=== PATIENT | female | born 1935 | race Caucasian/White ===

== ENCOUNTER → 2017-03-11 | Outpatient (CLI) | payer MEDICARE, BC ==
[~2017-03-11] MED LIST: ASPIRIN 32325 MG/TAB PO; ASPIRIN E.C. 8181 MG PO; BRILINTA90 MG PO; FISH OIL 1000MG1 CAP PO; LIPITOR 40MG TA40 MG PO; MULTI VITAMINS1 TAB PO; NAPROSYN 2250 MG/TAB PO; NITROSTAT0.4 MG/TAB SL; NORVASC 5MG5 MG/TAB PO; TOPROL XL 25MG25 MG PO; TYLENOL 325MG325 MG PO; ULTRAM 50MG TAB50 MG PO; VITAMIN D32000 IU; VITAMINC500CH
== END ==
LOC: COL.RAD 10:24
DX: M25.552 Pain in left hip (principal)
CPT/HCPCS: J3301; Q9967

== ENCOUNTER 2017-07-10 18:00 | Observation (INO) | payer MEDICARE, BC ==
[~2017-07-10] VITALS: Ht 167.6 cm; Wt 49.1 kg
[2017-07-10] MEDS ORDERED: ULTRAM 50MG TAB50 MG PO (18:12)
[2017-07-10] MEDS ORDERED: MULTI VITAMINS1 TAB PO (18:12)
[2017-07-10] MEDS ORDERED: TYLENOL 325MG325 MG PO (18:13)
[2017-07-10] MEDS ORDERED: VITAMINC500CH (18:13)
[2017-07-10] MEDS ORDERED: TOPROL XL 25MG25 MG PO (18:13)
[2017-07-10] MEDS ORDERED: NAPROSYN 2250 MG/TAB PO (18:15)
[2017-07-10] MEDS ORDERED: VITAMIN D32000 IU (18:15)
[2017-07-10] MEDS ORDERED: ASPIRIN 32325 MG/TAB PO (18:15)
[2017-07-10] MEDS ORDERED: FISH OIL 1000MG1 CAP PO (18:16)
[2017-07-10 18:34] LABS: BASO # 0.1 (0.0-0.2); BASO % 0.9 % (0.0-2.0); EOS # 0.1 (0.0-0.7); EOS % 1.4 % (0-4.0); GRAN # 3.6 (1.4-6.5); HEMATOCRIT 37.6 % (37.0-47.0); HEMOGLOBIN 12.2 g/dl (12.5-16.0); LYMPH # 2.1 (1.2-3.4); LYMPH % 32.1 % (20.0-51.0); MEAN CELL VOLUME 97 fl (80.0-100.0); MEAN CORPUSCULAR HEMOGLOBIN 31 pg (27.0-31.0); MEAN CORPUSCULAR HGB CONC 32 g/dl (33.0-37.0); MEAN PLATELET VOLUME 9.9 fl (7.4-10.4); MONO # 0.6 (0.1-0.6); MONO % 9.3 % (1.7-9.3); PLATELET COUNT 234 K/mm3 (130-400); RED BLOOD COUNT 3.88 M/mm3 (4.10-5.30); REDCELL DISTRIBUTION WIDTH-CV 12.6 % (11.5-14.5); WHITE BLOOD COUNT 6.5 K/mm3 (4.8-10.8)
[2017-07-10 19:02] LABS: ADJUSTED CALCIUM 9.2 mg/dL (8.4-10.2); ALANINE AMINOTRANSFERASE 43 U/L (9-52); ALBUMIN 4.2 gm/dL (3.5-5.0); ALKALINE PHOSPHATASE 82 U/L (50-136); ANION GAP 10 mmol/L (7-16); BILIRUBIN,TOTAL 0.9 mg/dL (0.0-1.0); BLOOD UREA NITROGEN 24 mg/dL (7-17); CALCIUM 9.4 mg/dL (8.4-10.2); CARBON DIOXIDE 27 mmol/L (22-30); CHLORIDE 101 mmol/L (98-107); CREATININE, serum 0.79 mg/dL (0.52-1.25); GLUCOSE 101 mg/dL (74-106); LIPASE 42 U/L (23-300); POTASSIUM 4.3 mmol/L (3.4-5.0); SODIUM 138 mmol/L (137-145); TOTAL PROTEIN 7.1 gm/dL (6.4-8.2)
[2017-07-10 19:05] LABS: PH 6 (5-8); SQUAMOUS EPITHELIAL None Seen /hpf; URINE APPEARANCE Clear; URINE BACTERIA None Seen /hpf; URINE BILIRUBIN Negative (NEGATIVE); URINE BLOOD Negative (NEGATIVE); URINE COLOR Yellow; URINE GLUCOSE Negative (NEGATIVE); URINE KETONE Trace (NEGATIVE); URINE UROBILINOGEN Negative (NEGATIVE); URINE WBC 0-2 /hpf
[2017-07-10 19:14] LABS: B-TYPE NATRIURETIC PEPTIDE 667 pg/mL (0-450)
[2017-07-10 19:19] LABS: TROPONIN-I < 0.012 ng/mL (0.000-0.034)
[2017-07-10 21:17] LABS: PROTHROMBIN TIME 11.5 SECONDS (9.7-12.8)
[2017-07-10 21:20] LABS: PARTIAL THROMBOPLASTIN TIME 31.4 SECONDS (26.0-37.0)
[2017-07-10 21:45] LABS: MAGNESIUM 2.2 mg/dL (1.6-2.3)
[2017-07-10 22:03] VITALS: BP 195/78; PULSE 71; TEMP 98.4
[2017-07-11] VITALS (13 sets, daily range): BP systolic 142–190; BP diastolic 63–96; PULSE 61–107; TEMP 97.6–100
[2017-07-11 07:27] LABS: BASO # 0.1 (0.0-0.2); BASO % 1.3 % (0.0-2.0); EOS # 0.1 (0.0-0.7); EOS % 1.8 % (0-4.0); GRAN # 2.8 (1.4-6.5); GRAN % 45.3 % (42.2-75.2); HEMATOCRIT 38.7 % (37.0-47.0); HEMOGLOBIN 12.8 g/dl (12.5-16.0); LYMPH # 2.5 (1.2-3.4); LYMPH % 41.1 % (20.0-51.0); MEAN CELL VOLUME 95 fl (80.0-100.0); MEAN CORPUSCULAR HEMOGLOBIN 31 pg (27.0-31.0); MEAN CORPUSCULAR HGB CONC 33 g/dl (33.0-37.0); MEAN PLATELET VOLUME 10.4 fl (7.4-10.4); MONO # 0.6 (0.1-0.6); MONO % 10.3 % (1.7-9.3); PLATELET COUNT 245 K/mm3 (130-400); RED BLOOD COUNT 4.08 M/mm3 (4.10-5.30); REDCELL DISTRIBUTION WIDTH-CV 12.6 % (11.5-14.5); WHITE BLOOD COUNT 6.1 K/mm3 (4.8-10.8)
[2017-07-11 07:39] LABS: ADJUSTED CALCIUM 9.5 mg/dL (8.4-10.2); ALBUMIN 4.1 gm/dL (3.5-5.0); BILIRUBIN,TOTAL 1.3 mg/dL (0.0-1.0); CALCIUM 9.6 mg/dL (8.4-10.2); CREATININE, serum 0.57 mg/dL (0.52-1.25); POTASSIUM 3.7 mmol/L (3.4-5.0)
[2017-07-12] VITALS (633 sets, daily range): BP systolic 111–180; BP diastolic 56–95; PULSE 62–77; TEMP 97.2–98.6; O2SAT 87–100
[2017-07-12 04:42] LABS: HEMATOCRIT 39.6 % (37.0-47.0); MEAN CELL VOLUME 96 fl (80.0-100.0); MEAN CORPUSCULAR HEMOGLOBIN 31 pg (27.0-31.0); MEAN CORPUSCULAR HGB CONC 33 g/dl (33.0-37.0); MEAN PLATELET VOLUME 9.9 fl (7.4-10.4); PLATELET COUNT 230 K/mm3 (130-400); RED BLOOD COUNT 4.14 M/mm3 (4.10-5.30); REDCELL DISTRIBUTION WIDTH-CV 12.6 % (11.5-14.5); WHITE BLOOD COUNT 6.8 K/mm3 (4.8-10.8)
[2017-07-12 04:48] LABS: INR 1.1 (0.8-3.0); PROTHROMBIN TIME 11.7 SECONDS (9.7-12.8)
[2017-07-12 04:51] LABS: CALCIUM 9.6 mg/dL (8.4-10.2); CREATININE, serum 0.67 mg/dL (0.52-1.25); PARTIAL THROMBOPLASTIN TIME 31.3 SECONDS (26.0-37.0); POTASSIUM 3.9 mmol/L (3.4-5.0)
[2017-07-13] VITALS (431 sets, daily range): BP systolic 128–154; BP diastolic 70–73; PULSE 58–62; TEMP 97.8; O2SAT 88–100
[2017-07-13 04:29] LABS: BASO # 0.1 (0.0-0.2); BASO % 0.7 % (0.0-2.0); EOS # 0.1 (0.0-0.7); EOS % 1.8 % (0-4.0); GRAN % 66.6 % (42.2-75.2); HEMATOCRIT 38.2 % (37.0-47.0); HEMOGLOBIN 12.6 g/dl (12.5-16.0); LYMPH # 1.7 (1.2-3.4); LYMPH % 22.5 % (20.0-51.0); MEAN CELL VOLUME 97 fl (80.0-100.0); MEAN CORPUSCULAR HEMOGLOBIN 32 pg (27.0-31.0); MEAN CORPUSCULAR HGB CONC 33 g/dl (33.0-37.0); MONO # 0.6 (0.1-0.6); MONO % 8.3 % (1.7-9.3); PLATELET COUNT 218 K/mm3 (130-400); RED BLOOD COUNT 3.95 M/mm3 (4.10-5.30); REDCELL DISTRIBUTION WIDTH-CV 12.7 % (11.5-14.5); WHITE BLOOD COUNT 7.6 K/mm3 (4.8-10.8)
[2017-07-13 04:39] LABS: CALCIUM 9.4 mg/dL (8.4-10.2); CREATININE, serum 0.62 mg/dL (0.52-1.25); POTASSIUM 4.1 mmol/L (3.4-5.0)
[2017-07-13] MEDS ORDERED: BRILINTA90 MG PO (10:23)
[2017-07-13] MEDS ORDERED: NORVASC 5MG5 MG/TAB PO (10:23)
[2017-07-13] MEDS ORDERED: ASPIRIN E.C. 8181 MG PO (10:23)
[2017-07-13] MEDS ORDERED: LIPITOR 40MG TA40 MG PO (10:23)
[2017-07-13] MEDS ORDERED: NITROSTAT0.4 MG/TAB SL (10:23)
== END 2017-07-13 13:30 | disposition home or self-care (01) ==
LOC: COL.ER 18:00 → MEDICAL 19:49 → ICU 07-12 10:45
PROVIDERS: Emergency Medicine; Internal Medicine Cardiovascular Disease; Nurse Practitioner Family
DX: I25.10 Atherosclerotic heart disease of native coronary artery without angina pectoris (principal); R94.39 Abnormal result of other cardiovascular function study; I10 Essential (primary) hypertension; D64.9 Anemia, unspecified; F41.9 Anxiety disorder, unspecified; E78.00 Pure hypercholesterolemia, unspecified; I08.3 Combined rheumatic disorders of mitral, aortic and tricuspid valves; Z79.01 Long term (current) use of anticoagulants; Z95.3 Presence of xenogenic heart valve; Z80.6 Family history of leukemia; Z82.49 Family history of ischemic heart disease and other diseases of the circulatory system
CPT/HCPCS: 99232-AI; 99239; A9502; C1760; C1769; C1874; C1887; C1894; C9600; C9601; G0378; J0360; J0583; J1650; J2060; J2250; J2785; J3010; J7030; Q9967

== ENCOUNTER → 2017-08-28 | Outpatient (CLI) | payer MEDICARE, BC | LOC: MC.RAD 13:38 | DX: Z12.31 Encounter for screening mammogram for malignant neoplasm of breast (principal) ==

== ENCOUNTER 2017-11-08 14:46 | Outpatient (RCR) | payer MEDICARE, BC | END 2017-11-12 | disposition home or self-care (01) | LOC: COL.CR | DX: Z48.812 Encounter for surgical aftercare following surgery on the circulatory system (principal); Z95.5 Presence of coronary angioplasty implant and graft; I25.10 Atherosclerotic heart disease of native coronary artery without angina pectoris ==

== ENCOUNTER → 2018-03-10 | Outpatient (CLI) | payer MEDICARE, BC | LOC: MHCPAIN 10:28 | DX: Z01.89 Encounter for other specified special examinations (principal) ==

== ENCOUNTER → 2018-03-10 | Outpatient (CLI) | payer MEDICARE, BC | LOC: MHCPAIN 10:35 | DX: G89.29 Other chronic pain (principal); M47.27 Other spondylosis with radiculopathy, lumbosacral region; M53.3 Sacrococcygeal disorders, not elsewhere classified; M96.1 Postlaminectomy syndrome, not elsewhere classified | CPT/HCPCS: G0463 ==

== ENCOUNTER → 2018-07-08 | Outpatient (CLI) | payer MEDICARE, BC | LOC: COL.VAS 09:40 | DX: I08.1 Rheumatic disorders of both mitral and tricuspid valves (principal); R60.0 Localized edema; I25.10 Atherosclerotic heart disease of native coronary artery without angina pectoris; Z95.2 Presence of prosthetic heart valve ==

== ENCOUNTER → 2018-07-29 | Outpatient (CLI) | payer MEDICARE, BC | LOC: MHCPAIN 09:23 | DX: G89.29 Other chronic pain (principal); M47.817 Spondylosis without myelopathy or radiculopathy, lumbosacral region; M54.16 Radiculopathy, lumbar region; M53.3 Sacrococcygeal disorders, not elsewhere classified; M96.1 Postlaminectomy syndrome, not elsewhere classified | CPT/HCPCS: G0463 ==

== ENCOUNTER → 2018-08-28 | Outpatient (CLI) | payer MEDICARE, BC | LOC: MHCPAIN 08:46 | DX: M47.817 Spondylosis without myelopathy or radiculopathy, lumbosacral region (principal); M54.5 Low back pain | CPT/HCPCS: J1040; Q9967 ==

== ENCOUNTER 2019-01-06 11:45 | Observation (INO) | payer MEDICARE, BC ==
[~2019-01-06] VITALS: Ht 167.6 cm; Wt 46.4 kg
[2019-01-06 12:36] LABS: BASO % 0.6 % (0.0-2.0); EOS % 0.6 % (0-4.0); GRAN # 4.6 (1.4-6.5); GRAN % 64.9 % (42.2-75.2); HEMATOCRIT 40.7 % (37.0-47.0); HEMOGLOBIN 13.5 g/dl (12.5-16.0); LYMPH # 1.8 (1.2-3.4); LYMPH % 26.2 % (20.0-51.0); MEAN CELL VOLUME 97 fl (80.0-100.0); MEAN CORPUSCULAR HEMOGLOBIN 32 pg (27.0-31.0); MEAN CORPUSCULAR HGB CONC 33 g/dl (33.0-37.0); MONO # 0.5 (0.1-0.6); MONO % 7.3 % (1.7-9.3); PLATELET COUNT 237 K/mm3 (130-400); REDCELL DISTRIBUTION WIDTH-CV 13.3 % (11.5-14.5)
[2019-01-06 12:41] LABS: PROTHROMBIN TIME 11.7 SECONDS (9.7-12.8)
[2019-01-06 12:48] LABS: ALANINE AMINOTRANSFERASE 29 U/L (9-52); ALBUMIN 4.4 gm/dL (3.5-5.0); ALKALINE PHOSPHATASE 64 U/L (50-136); ANION GAP 9 mmol/L (7-16); AST,SGOT 34 U/L (15-37); BILIRUBIN,TOTAL 1.1 mg/dL (0.0-1.0); BLOOD UREA NITROGEN 28 mg/dL (7-17); CALCIUM 9.9 mg/dL (8.4-10.2); CARBON DIOXIDE 27 mmol/L (22-30); CHLORIDE 104 mmol/L (98-107); CREATININE, serum 0.92 mg/dL (0.52-1.25); GLUCOSE 89 mg/dL (74-106); LIPASE 68 U/L (23-300); POTASSIUM 4.5 mmol/L (3.4-5.0); SODIUM 140 mmol/L (137-145); TOTAL PROTEIN 7.5 gm/dL (6.4-8.2)
[2019-01-06 13:02] LABS: TROPONIN-I < 0.012 ng/mL (0.000-0.035)
[2019-01-06 14:03] LABS: COLLECTION METHOD CLEAN CATCH
[2019-01-06 14:12] LABS: BUDDING YEAST Present /hpf; MUCOUS Present /lpf; PH 7 (5-8); SQUAMOUS EPITHELIAL None Seen /hpf; URINE APPEARANCE Hazy; URINE BACTERIA None Seen /hpf; URINE BILIRUBIN Negative (NEGATIVE); URINE BLOOD Negative (NEGATIVE); URINE COLOR Yellow; URINE GLUCOSE Negative (NEGATIVE); URINE KETONE Trace (NEGATIVE); URINE LEUKOCYTE ESTERASE Negative (NEGATIVE); URINE NITRATE Negative (NEGATIVE); URINE PROTEIN(semi-quant) 1+ (NEGATIVE)
--- NOTE | 2019-01-06 15:53 | NUR ---
JUDY responded to ED consult and met with the patient, patient's friend, and the patient's two daughters (Nay and Pedro). The patient lives alone in [place]. She reports independence with ADLs prior to coming to the ED and has a cane and walker. She states she receives outpatient therapy at [facility]. PT was ordered and they worked with the patient. PT is recommending twenty-four hour support or home with twenty-four family assistance. The patient's daughters report they are not comfortable with the patient going home. JUDY discussed inpatient rehab, private paying for SNF, or a respite stay. The patient and patient's daughters report they would be interested and would be agreeable to private pay for a respite stay at [facility]. JUDY contacted Mary at [facility]. SW student faxed the referral. Mary reports that they can accept the patient for a private pay respite stay. JUDY informed the patient and patient's daughters. The patient is to be admitted for observation. SW to continue to follow.
[2019-01-06] MEDS ORDERED: MEGACE20 MG PO (16:10)
[2019-01-06] MEDS ORDERED: ARICEPT 5MG PO (16:11)
--- NOTE | 2019-01-06 17:15 | NUR ---
Pt arrived to room 310 via cart with ED staff. Pt able to transfer from the cart to the floor bed with the assistance of one. Oriented to room and call light system. Family at the bedside; all questions answered. Pt is sitting up in the bed watching TV at this time and she denies further needs. Call light within reach.
[2019-01-06] MEDS ORDERED: CELEBREX 200MG200 MG PO (17:47)
[2019-01-06 19:02] VITALS: BP 145/55; PULSE 63; TEMP 97.6
--- NOTE | 2019-01-06 20:20 | NUR ---
Shift assessment complete. Pt resting in bed, awake, a&o, cooperative c cares. Pt denies pain or any other c/o at this time. IV patent. Pt denies needs. Call light in reach, bed alarm on. Will monitor.
[2019-01-06 23:29] VITALS: BP 187/67; PULSE 57; TEMP 98.6
[2019-01-07 00:14] VITALS: BP 180/65
[2019-01-07 03:23] VITALS: BP 196/76; PULSE 61; TEMP 97.4
[2019-01-07 06:10] LABS: BASO # 0.1 (0.0-0.2); BASO % 1.1 % (0.0-2.0); EOS # 0.1 (0.0-0.7); EOS % 1.8 % (0-4.0); GRAN # 3.3 (1.4-6.5); GRAN % 54.8 % (42.2-75.2); HEMATOCRIT 39.7 % (37.0-47.0); HEMOGLOBIN 13.1 g/dl (12.5-16.0); LYMPH # 2.1 (1.2-3.4); LYMPH % 34.4 % (20.0-51.0); MEAN CELL VOLUME 97 fl (80.0-100.0); MEAN CORPUSCULAR HEMOGLOBIN 32 pg (27.0-31.0); MEAN CORPUSCULAR HGB CONC 33 g/dl (33.0-37.0); MEAN PLATELET VOLUME 9.8 fl (7.4-10.4); MONO # 0.5 (0.1-0.6); MONO % 7.7 % (1.7-9.3); PLATELET COUNT 214 K/mm3 (130-400); RED BLOOD COUNT 4.08 M/mm3 (4.10-5.30); REDCELL DISTRIBUTION WIDTH-CV 13.1 % (11.5-14.5)
[2019-01-07 06:21] LABS: CALCIUM 9.3 mg/dL (8.4-10.2); CREATININE, serum 0.58 mg/dL (0.52-1.25); POTASSIUM 3.6 mmol/L (3.4-5.0)
--- NOTE | 2019-01-07 07:00 | NUR ---
Report on to JOHN Ashraf.
--- NOTE | 2019-01-07 07:03 | NUR ---
Pt resting in bed, condition unchanged. Pt has been up to void >10 times this shift. Pt has otherwise rested well c few needs. No pain or other c/o. Pt s needs at this time. Call light in reach, bed alarm on.
--- NOTE | 2019-01-07 07:11 | NUR ---
Bedside shift report given to Pascale LOPEZ to assume pt cares.
--- NOTE | 2019-01-07 07:15 | NUR ---
Report received. Patient is in bed with head of bed elevated. Stated to staff she just ordered breakfast. She has no needs or concerns at this time. Call light is within reach.
--- NOTE | 2019-01-07 07:30 | NUR ---
Received patient report. Patient is sitting up in bed visiting with his boss. He denies pain at this time. Has no needs at this time. States he is ready to get his testing over with this morning. Call light is within reach.
[2019-01-07 07:50] VITALS: BP 125/63; PULSE 63; TEMP 98.5
--- NOTE | 2019-01-07 08:56 | NUR ---
Upon assessment patient reported he did not have any pain. Did state that he had some slight dullness in his chest. Nothing severe or painful. He stated he thought it was "in my head." He states he is just wanting to get this overwith to have answers. Otherwise he states he is doing well and has no needs. Has call light in reach.
--- NOTE | 2019-01-07 09:38 | NUR ---
Patient had stool sample sent to lab. Sample sent was a sold formed stool. Patient also verbalizes complaints of constipation. Recieved order for a 1x dose of miralax and also was instructed to discontinue IV fluids. Patient up to restroom and did bump right forearm on the commode handle. Recieved 4x1 cm skin tear. Area cleansed and covered with telfa and wrapped with coban. There was no skin available to approximate.
[2019-01-07] MEDS ORDERED: NORVASC 10MG10 MG PO (10:00)
[2019-01-07] MEDS ORDERED: ULTRAM 50MG TAB50 MG PO (10:01)
--- NOTE | 2019-01-07 10:51 | NUR ---
Patient assessed by this nurse and student. Patient is noted to be a thin lady, skin is thin and tents. Lungs are clear to all lobes. HR is regular. Abdomen is soft, nontender. Bowel sounds active in all quadrants. Radial and pedal pulses present and easily palpable. Is noted to have some weakness during ambulation, requires stand by assistance. Paient is noted to be alert and oriented. Is voiding with no difficulty, urine is clear and yellow. Denies pain. No needs idientified. Is currently sitting up in recliner with call light in reach.
[2019-01-07 11:44] VITALS: BP 118/60; PULSE 72; TEMP 97.3
--- NOTE | 2019-01-07 13:44 | NUR ---
JUDY and JUDY student attended clinical rounding and met with patient to discuss discharge planning. Patient lives alone in [facility] and has a walker and can she can use to ambulate. Patients PCP is Dr Valenzuela. JUDY had set up for patient to go [facility]. JUDY called and takled with Mary who reports patients room is ready and they can accept today. Patients daughter is going to transport. JUDY contacted Pedro who said she will be at the hospital at 3:30 to package pick up patient. JUDY informed nurse and [facility]. Discharge orders faxed. Patient is dc today to [facility] for private pay respite care and PT/OT.
--- NOTE | 2019-01-07 15:57 | NUR ---
Patient discharged at 1542 via private car with daughter to [facility]. Report called and given to Angelic.
== END 2019-01-07 15:42 ==
LOC: COL.ER 11:45 → MEDICAL 15:13
PROVIDERS: Emergency Medicine; Nurse Practitioner Family; ADMIT Family Medicine
DX: R53.81 Other malaise (principal); E86.0 Dehydration; R19.7 Diarrhea, unspecified; I10 Essential (primary) hypertension; E78.5 Hyperlipidemia, unspecified; E43 Unspecified severe protein-calorie malnutrition; Z68.1 Body mass index [BMI] 19.9 or less, adult; Z95.2 Presence of prosthetic heart valve; G89.29 Other chronic pain; M54.9 Dorsalgia, unspecified; Z79.899 Other long term (current) drug therapy
CPT/HCPCS: G0378; J1650; J7030

== ENCOUNTER 2019-03-04 09:47 | Inpatient (IN) | payer MEDICARE, BC ==
[~2019-03-04] VITALS: Ht 167.6 cm; Wt 53.5 kg
[2019-03-04] VITALS (588 sets, daily range): BP systolic 92–109; BP diastolic 51–64; PULSE 76–81; TEMP 97.5–98.6; O2SAT 79–100
[~2019-03-04 09:47] MED LIST changes: +ARICEPT 5MG PO; +CELEBREX 200MG200 MG PO; +MEGACE20 MG PO; +NORVASC 10MG10 MG PO
[2019-03-04 10:56] LABS: HEMOGLOBIN 11.2 g/dl (12.5-16.0); MEAN CELL VOLUME 95 fl (80.0-100.0); MEAN CORPUSCULAR HEMOGLOBIN 32 pg (27.0-31.0); MEAN CORPUSCULAR HGB CONC 33 g/dl (33.0-37.0); MEAN PLATELET VOLUME 9.3 fl (7.4-10.4); PLATELET COUNT 416 K/mm3 (130-400); RED BLOOD COUNT 3.54 M/mm3 (4.10-5.30)
[2019-03-04 10:58] LABS: HEMATOCRIT 33.7 % (37.0-47.0)
[2019-03-04 11:03] LABS: ARTERIAL BLD GAS O2 SATURATION 92.3 % (92-100); ARTERIAL BLD GAS TCO2 CT 23.7; ARTERIAL BLOOD GAS BASE EXCESS -0.7 (-2-2); ARTERIAL BLOOD GAS HCO3 22.7 meq/L (22-26); ARTERIAL BLOOD GAS PCO2 33.2 mmHg (35-45); ARTERIAL BLOOD GAS PO2 63.3 mmHg (80-100); ARTERIAL BLOOD GAS pH 7.45 (7.35-7.45)
[2019-03-04 11:14] LABS: BILIRUBIN,TOTAL 0.6 mg/dL (0.0-1.0); CALCIUM 9.2 mg/dL (8.4-10.2); CREATININE, serum 1.61 (0.52-1.25); POTASSIUM 4.3 mmol/L (3.4-5.0); TOTAL PROTEIN 6.2 gm/dL (6.4-8.2)
[2019-03-04 12:15] LABS: BAND 14 % (0-10); LYMPHOCYTE 1 % (20.0-51.0); NEUTROPHILS 85 % (42.0-75.2); PLATELET ESTIMATE INCREASED (NORMAL)
[2019-03-04] MEDS ORDERED: ZOLOFT 25MG25 MG PO (12:33)
[2019-03-04] MEDS ORDERED: MIRALAX PA17 GM/Dose PO (12:33)
[2019-03-04] MEDS ORDERED: COLACE 100100 MG/CAP PO (12:34)
[2019-03-04] MEDS ORDERED: MILK OF MA400 MG/52 PO (12:34)
--- NOTE | 2019-03-04 13:01 | NUR ---
REPORT RECEIVED FROM CROW LOPEZ IN ED.
--- NOTE | 2019-03-04 13:05 | NUR ---
PT RECEIVED FROM ED ON STRETCHER BY CROW LOPEZ. PT TRANSFERRED TO ICU BED ROOM 7. HEAD-TO-TOE ASSESSMENT PERFORMED.
[2019-03-04] MEDS ORDERED: ZTLIDO1 EACH TP (13:16)
[2019-03-04] MEDS ORDERED: TOPROL XL 25MG25 MG PO (13:19)
[2019-03-04] MEDS ORDERED: SINEMET 25/101 UDTAB PO (13:22)
[2019-03-04] MEDS ORDERED: XANAX .25M0.25 MG/TA PO (14:34)
[2019-03-04] MEDS ORDERED: NORCO 325 MG-51 TAB PO (14:39)
--- NOTE | 2019-03-04 14:50 | NUR ---
RADIOLOGY CALLED FOR FOLLOWUP CXR PER DR ROWAN.
--- NOTE | 2019-03-04 15:04 | NUR ---
PT STATES SHE FEELS LIKE SHE HAS TO VOID. PT PLACED ON BEDPAIN X2 BUT PT UNABLE TO URINATE. I ASKED PATIENT IF WE SHOULD PUT IN A MARTIN CATHETER AND PT DENIES. WILL TRY AGAIN LATER.
--- NOTE | 2019-03-04 15:30 | NUR ---
PT C/O SEVERE BACK PAIN. DR ROWAN CALLED TO INQUIRE ABOUT PAIN MEDICATION FOR PATIENT. PT'S HOME DOSE OF NORCO RESUMED.
--- NOTE | 2019-03-04 16:00 | NUR ---
VISITOR POLICY REVIEWED WITH FAMILY
--- NOTE | 2019-03-04 16:22 | NUR ---
PROCEDURE EXPLAINED TO PATIENT AND FAMILY FOR ULTRASOUND GUIDED THORACENTESIS. CONSENT OBTAINED FROM PATIENT.
--- NOTE | 2019-03-04 16:55 | NUR ---
PT STATES ABDOMINAL PAIN IS SLIGHTLY BETTER AFTER INSERTING MARTIN CATHETER. PT CONTINUES TO C/O BACK PAIN. LIDOCAINE PATCH APPLIED. PT HAS NOT HAD PATCH APPLIED YET TODAY.
[2019-03-04 17:02] LABS: COLLECTION METHOD CLEAN CATCH
--- NOTE | 2019-03-04 17:03 | NUR ---
PT C/O LOWER ABDOMINAL PAIN. PT STILL UNABLE TO VOID. VERBAL ORDE FROM DR ROWAN OBTAINED TO INSERT MARTIN. 16F MARTIN INSERTED WITHOUT DIFFICULTY. PT IMMEDIATELY HAD 360ML OR AMRIK COLORED URINE RETURNED.
[2019-03-04 17:14] LABS: HYALINE CAST >12 /lpf; MUCOUS Present /lpf; PH 5 (5-8); SQUAMOUS EPITHELIAL 0-2 /hpf; URINE APPEARANCE Hazy; URINE BACTERIA None Seen /hpf; URINE BILIRUBIN Negative (NEGATIVE); URINE BLOOD Negative (NEGATIVE); URINE COLOR Amber; URINE GLUCOSE Negative (NEGATIVE); URINE KETONE Trace (NEGATIVE); URINE LEUKOCYTE ESTERASE Negative (NEGATIVE); URINE NITRATE Negative (NEGATIVE); URINE PROTEIN(semi-quant) 1+ (NEGATIVE)
--- NOTE | 2019-03-04 17:58 | NUR ---
DR GANDHI PRESENT TO PERFORM US GUIDED THORACENTESIS. DR GANDHI USED US MACHINE AND STATES HE IS UNABLE TO SEE MUCH FLUID TO DRAIN. PROVIDER CALLED RADIOLOGIST FOR ASSISTANCE. DR GANDHI ALONG WITH RADIOLOGIST CONCLUDED THEY WILL BE UNSUCCESSFUL IF THEY ATTEMPT TO PERFORM THORACENTESIS D/T SEVERAL LOCUALATED AREAS OF FLUID. I WENT AND RETRIEVED DAUGHTER SO DR GANDHI COULD EXPLAIN THE FINDINGS.
--- NOTE | 2019-03-04 18:00 | NUR ---
DR GANDHI REQUESTS SECOND IV ACCESS. 22G INSERTED TO LEFT FOREARM.
--- NOTE | 2019-03-04 19:38 | NUR ---
PATIENT LEFT UNIT WITH RADIOLOGY TO HAVE A CT SCAN PERFORMED.
--- NOTE | 2019-03-04 19:54 | NUR ---
PATIENT ARRIVED BACK ON UNIT.
--- NOTE | 2019-03-04 21:06 | NUR ---
PATIENT IS RESTING IN BED. STATED SHE WAS VERY TIRED AND WOULD LIKE TO REST FOR THE NIGHT. WILL CONTINUE TO MONITOR PATIENT.
[2019-03-05] VITALS (1396 sets, daily range): BP systolic 99–130; BP diastolic 49–71; PULSE 68–107; TEMP 97.5–98.2; O2SAT 79–100
--- NOTE | 2019-03-05 00:18 | NUR ---
PATIENT WAS A LITTLE CONFUSED. KEPT SAYING HELP ME AND TRYING TO GET OUT OF BED. REORIENTATED THE PATIENT AND GAVE PATIENT PAIN MEDICATION AND REPOSTITIONED.
--- NOTE | 2019-03-05 03:54 | NUR ---
placed soft mitts on patient due to the fact she was trying to pull out her iv, drew catheter, and remove her oxygen. patient did pull out her oxygen tubing during the shift and her O2 dropped below 92%. will continue to monitor patient.
--- NOTE | 2019-03-05 04:08 | NUR ---
patient has become more agitatted and restless throughout shift. she has made multiple attempts to hit staff. she tried to pull my hair when I was talking with her. she is trying to pull at her lines and tubes as well. will continue to keep and eye on the patient and ensure she does not pull out any equipment.
[2019-03-05 05:54] LABS: MEAN CELL VOLUME 96 fl (80.0-100.0); MEAN CORPUSCULAR HGB CONC 33 g/dl (33.0-37.0); MEAN PLATELET VOLUME 9.7 fl (7.4-10.4); PLATELET COUNT 409 K/mm3 (130-400); RED BLOOD COUNT 3.09 M/mm3 (4.10-5.30); REDCELL DISTRIBUTION WIDTH-CV 13.4 % (11.5-14.5)
[2019-03-05 05:58] LABS: HEMATOCRIT 29.7 % (37.0-47.0); HEMOGLOBIN 9.8 g/dl (12.5-16.0); MEAN CORPUSCULAR HEMOGLOBIN 32 pg (27.0-31.0)
[2019-03-05 06:09] LABS: CALCIUM 8.2 mg/dL (8.4-10.2); CREATININE, serum 0.82 (0.52-1.25); POTASSIUM 4.3 mmol/L (3.4-5.0)
[2019-03-05 06:20] LABS: MAGNESIUM 2.4 mg/dL (1.6-2.3)
[2019-03-05 06:32] LABS: BAND 14 % (0-10); LYMPHOCYTE 2 % (20.0-51.0); NEUTROPHILS 81 % (42.0-75.2); PLATELET ESTIMATE INCREASED (NORMAL)
--- NOTE | 2019-03-05 07:15 | NUR ---
Bedside report received from JOHN Rosen. Patient currently in bed pulling off monitors. Mitts sitting in bed with patient. Patient removed mitts using her teeth. Mitts placed back on her hands at this time. Attempted to reorient the patient. She tries to hit and kick the nurses at this time. Bed Alarm currently on. Plan of care discussed. Care taken over.
--- NOTE | 2019-03-05 07:43 | NUR ---
gave report to lizette camacho and hedy, nursing center tutor.
--- NOTE | 2019-03-05 09:49 | NUR ---
Initial visit; Patient's daughters joined Katherine and Woolen Mill Utility Worker in prayer. Woolen Mill Utility Worker offered encouragement and God's blessings.
--- NOTE | 2019-03-05 10:54 | NUR ---
JUDY erickson attended clinical rounds and met with patient and patient's daughters (Charito and Pedro) to discuss discharge plan. [facility]. Patient's PCP is Dr. Valenzuela and she uses [facility] for prescriptions. Patient uses a walker and cane to ambulate. Patient presented to our ED in January and was then admitted for one night for observation. Patient was discharged in January to [facility] [place] stay. From the respite stay, patient transferred over to the assisted living portion of [facility]. Patient believes she has a DPOA-HC completed at home. Family will try to locate DPOA-HC to bring to hospital and believe it designates patient's daughter (Pedro), daughters also requested an additional DPOA-HC to complete again if other is not located. JUDY erickson provided. Daughters inquired about a possible post-acute rehab stay. JUDY erickson discussed what a SNF stay consists of and how the patient would have to qualify for Medicare coverage with 3 inpatient midnight stays. Daughters verbalized understanding. SW to continue to follow for recommendations.
--- NOTE | 2019-03-05 11:15 | NUR ---
Bedside thoracentesis completed at this time with Dr. Harris and [employer] tech. Patient assisted to sitting position by this RN. I stay with patient and hold her up the entire time. She tolerates fairly well considering how weak she is. Specimen is obtained. Will send to lab.
--- NOTE | 2019-03-05 11:24 | NUR ---
SW student was informed that patient may have DPOA-HC at PCP or [facility]. JUDY contacted [facility] and requested copy to be faxed to ICU.
[2019-03-05 12:14] LABS: PLEURAL FLUID RBC 38000 /mm3 (0-0); PLEURAL FLUID WBC 22216 /mm3
[2019-03-05 12:26] LABS: TOTAL PROTEIN,PLEURAL FLUID 3.7 gm/dL
[2019-03-05 12:27] LABS: GLUCOSE,PLEURAL FLUID < 20 mg/dL; PLEURAL FLUID APPEARANCE HAZY; PLEURAL FLUID COLOR YELLOW
--- NOTE | 2019-03-05 16:30 | NUR ---
Dr. Ding has come to see patient. Plan for Chest tube in OR tomorrow at [address] Ding has explained to patient and daughter. Will obtain consent, per order.
--- NOTE | 2019-03-05 19:33 | NUR ---
Bedside report given to JOHN Rosen by Nakita Student RN.
--- NOTE | 2019-03-05 19:54 | NUR ---
received report from lizette camacho.
--- NOTE | 2019-03-05 20:37 | NUR ---
assessment completed at this time. patient was alert and able to take her pills with pudding. will continue to monitor patient throughout shift.
[2019-03-06] VITALS (1237 sets, daily range): BP systolic 94–153; BP diastolic 47–78; PULSE 70–97; TEMP 97.8–99.3; O2SAT 66–100
--- NOTE | 2019-03-06 00:42 | NUR ---
PATIENT IS CURRENTLY SLEEPING.
[2019-03-06 05:21] LABS: HEMATOCRIT 28.2 % (37.0-47.0); HEMOGLOBIN 8.9 g/dl (12.5-16.0); MEAN CELL VOLUME 98 fl (80.0-100.0); MEAN CORPUSCULAR HEMOGLOBIN 31 pg (27.0-31.0); MEAN CORPUSCULAR HGB CONC 32 g/dl (33.0-37.0); MEAN PLATELET VOLUME 9.5 fl (7.4-10.4); PLATELET COUNT 387 K/mm3 (130-400); RED BLOOD COUNT 2.87 M/mm3 (4.10-5.30); REDCELL DISTRIBUTION WIDTH-CV 13.7 % (11.5-14.5)
[2019-03-06 05:36] LABS: CALCIUM 8.5 mg/dL (8.4-10.2); CREATININE, serum 0.64 (0.52-1.25); MAGNESIUM 2.4 mg/dL (1.6-2.3); PHOSPHOROUS 2.7 mg/dL (2.5-4.5); POTASSIUM 3.4 mmol/L (3.4-5.0)
[2019-03-06 05:50] LABS: BAND 15 % (0-10); LYMPHOCYTE 4 % (20.0-51.0); MYELOCYTE 2 % (0-0); NEUTROPHILS 74 % (42.0-75.2); PLATELET ESTIMATE NORMAL (NORMAL)
[2019-03-06 05:51] LABS: HYPOCHROMIA 1+
[2019-03-06 05:53] LABS: OVALOCYTES 1+
[2019-03-06 05:54] LABS: BURR CELLS 1+
--- NOTE | 2019-03-06 07:42 | NUR ---
gave report to lizette bower.
--- NOTE | 2019-03-06 10:35 | NUR ---
Follow-up visit; Patient and daughter thanked Habilitation Training Specialist for looking in on her again today and keeping her in Habilitation Training Specialist's prayers.
--- NOTE | 2019-03-06 11:10 | NUR ---
Pt off unit to OR for chest tube placement.
--- NOTE | 2019-03-06 12:45 | NUR ---
Pt returned to unit ICU7 from OR, R sided chest tube in place. remains in place. Denies pain at this time. VSS, currently on 4L NC. Very small leak noted with intermitant bubles in air leak chamber. no crepitus noted. Sanguinous drainage noted in chest tube. 10ml noted in chamber on arrival from OR. Pt will remain NPO at this time for possible DAVIN per Dr. Beltran. Will continue to monitor.
--- NOTE | 2019-03-06 14:23 | NUR ---
Dr. Burleson at bedside speaking with family. Echo ordered at this time.
--- NOTE | 2019-03-06 14:26 | NUR ---
Correction pt returned from OR at 1345 not 1246
--- NOTE | 2019-03-06 19:32 | NUR ---
Patient assessment completed and charted at this time, please see documentation for details. Patient resting in bed, daughters at bedside at this time. All questions and concerns addressed at this time. Call light within reach, patient practiced to make sure she could hit the call light with success. Will continue to monitor.
[2019-03-07] VITALS (794 sets, daily range): BP systolic 126–167; BP diastolic 61–76; PULSE 73–91; TEMP 97.8–98.1; O2SAT 89–100
[2019-03-07 05:11] LABS: HEMATOCRIT 30.5 % (37.0-47.0); HEMOGLOBIN 9.7 g/dl (12.5-16.0); MEAN CELL VOLUME 98 fl (80.0-100.0); MEAN CORPUSCULAR HEMOGLOBIN 31 pg (27.0-31.0); MEAN CORPUSCULAR HGB CONC 32 g/dl (33.0-37.0); MEAN PLATELET VOLUME 9.4 fl (7.4-10.4); PLATELET COUNT 387 K/mm3 (130-400); RED BLOOD COUNT 3.11 M/mm3 (4.10-5.30); REDCELL DISTRIBUTION WIDTH-CV 13.8 % (11.5-14.5)
[2019-03-07 05:28] LABS: ALBUMIN 2.3 gm/dL (3.5-5.0); CREATININE, serum 0.63 (0.52-1.25); MAGNESIUM 2.3 mg/dL (1.6-2.3); PHOSPHOROUS 2.5 mg/dL (2.5-4.5); POTASSIUM 3.7 mmol/L (3.4-5.0)
[2019-03-07 06:05] LABS: BAND 28 % (0-10); LYMPHOCYTE 3 % (20.0-51.0); METAMYELOCYTE 8 % (0-0); MYELOCYTE 1 % (0-0); NEUTROPHILS 60 % (42.0-75.2)
[2019-03-07 06:06] LABS: HYPOCHROMIA 1+; PLATELET ESTIMATE NORMAL (NORMAL)
[2019-03-07 06:08] LABS: OVALOCYTES 1+
[2019-03-07 11:14] LABS: PATHOLOGY DIFF REVIEW OK
--- NOTE | 2019-03-07 17:35 | NUR ---
Report called to JOHN Olmedo.
--- NOTE | 2019-03-07 17:59 | NUR ---
Patient transferred to medical floor room 313 via bed by CHISEL WORKER and Student nurse. Chest tube and drew catheter secured upon transport. Family notified via telephone of patient transfer. Patient was placed on a telemetry box and transferred with no complications. Patient belongings including wheelchair and chart transferred to room with the patient. Once in 313, the patient was oriented to the room and IV medications were restarted per physician orders. JOHN Olmedo notified of arrival. Echo, the patient's daughter, arrives at bedside. The patient has no complaints or concerns at this time. Call light placed within reach. Bed in lowest position.
--- NOTE | 2019-03-07 18:42 | NUR ---
Patient up to room 313, escorted by JOHN Carter from ICU. Report recevied from Emma. Daughter at patient bedside. Patient is laying in bed. MARILYN PICC, with TPN at 45 ml/hr through purple port. NS @ 50 ml/hr through red port. No complications. Patient on 2L NC. catheter draining clear yellow urine. Chest tube in place, dependent drainage, marked from ICU nurse. Patient c/o of back pain. Patient repositioned with pillows under right side, left elbow and under knees. Lung sounds diminished on right side. Heart sounds RRR. Mild 1+ edema on hands. Left forearm wrapped with gauze. Denies other needs at this time.
--- NOTE | 2019-03-07 19:27 | NUR ---
Report given to JOHN Chris. No other needs at this time.
--- NOTE | 2019-03-07 19:57 | NUR ---
Patient resting in bed with family at bedside. C/O abdominal pain- given morphine which has relieved the pain. TPN infusing into purple lumen at 45 mls/hr, IVF infusing at 50 mls/hr into red lumen. Right lateral chest tube to dependent drainage. Indwelling drew catheter in place- yellow/clear. Pt appears anxious- requesting nurse at bedside at all times. Replaced call light with soft touch call light for easier use, patient with sight of nurse's station. Reassured to use call light or call out for any assistance- pt repeated that she understood. No further needs at this time, family leaving for the night.
[2019-03-08 04:03] VITALS: BP 161/64; PULSE 101; TEMP 97.3
--- NOTE | 2019-03-08 05:04 | NUR ---
Pt slept on/off last night. Given morphine for pain at the beginning of shift. Chest tube- minimal drainage, only around [address], 1400 out. IVF infusing. TPN infusing.
[2019-03-08 06:25] LABS: MEAN CELL VOLUME 97 fl (80.0-100.0); MEAN CORPUSCULAR HGB CONC 32 g/dl (33.0-37.0); MEAN PLATELET VOLUME 9.3 fl (7.4-10.4); PLATELET COUNT 441 K/mm3 (130-400); RED BLOOD COUNT 3.14 M/mm3 (4.10-5.30); REDCELL DISTRIBUTION WIDTH-CV 13.9 % (11.5-14.5)
[2019-03-08 06:26] LABS: CALCIUM 8.7 mg/dL (8.4-10.2); CREATININE, serum 0.48 (0.52-1.25); POTASSIUM 3.2 mmol/L (3.4-5.0)
[2019-03-08 06:29] LABS: HEMATOCRIT 30.3 % (37.0-47.0); HEMOGLOBIN 9.8 g/dl (12.5-16.0); MEAN CORPUSCULAR HEMOGLOBIN 31 pg (27.0-31.0)
--- NOTE | 2019-03-08 06:59 | NUR ---
Report given to JOHN Olmedo.
[2019-03-08 07:11] VITALS: BP 167/79; PULSE 105; TEMP 98.3
[2019-03-08 09:45] LABS: MAGNESIUM 2.1 mg/dL (1.6-2.3); PHOSPHOROUS 1.8 mg/dL (2.5-4.5)
--- NOTE | 2019-03-08 10:00 | NUR ---
Patient assessment complete. Patient complaining of low back pain and abdominal pain. Denies nausea, chest pain, palpitations, numbness, tingling. Lung sounds clear throughout left side. Lung sounds diminished throughout right side. Heart rate is mild tachy. Patient on 2L NC. Edema BLE 3+, BUE 2+. Pulses strong bilaterally radial. Distal pulses difficult to palpate. Soft touch call light within reach.
[2019-03-08 11:29] VITALS: BP 168/68; PULSE 96; TEMP 98.1
--- NOTE | 2019-03-08 12:48 | NUR ---
Patient appears more confused than earlier, requesting to be in "bed and laid down". Patient is currently in bed and laying down, HOB at 30 degreees. JOHN Lucas ICU called to report tele had 15 sec beat of tachycardia, no vtach or vfib. Called Dr. Vieira, he will review strip when he returns. Possible EKG needed and lopressor. Patient sleeping in bed. Not comfortable, complaining of low back and some abdominal pain. Denies nausea, chest pain, palpitations. Will continue to monitor.
[2019-03-08 12:59] LABS: BAND 8 % (0-10); LYMPHOCYTE 7 % (20.0-51.0); NEUTROPHILS 78 % (42.0-75.2)
[2019-03-08 13:00] LABS: HYPOCHROMIA 1+; OVALOCYTES 1+; PLATELET ESTIMATE INCREASED (NORMAL)
--- NOTE | 2019-03-08 15:30 | NUR ---
Patient received lopressor. Patient repositioned, turning sheet changed, chest tube has some drainage. Patient has had good response to lasix. Call light within reach.
[2019-03-08 16:11] VITALS: BP 158/81; PULSE 88; TEMP 97.9
--- NOTE | 2019-03-08 17:00 | NUR ---
Discussed with Dr. Ding about chest tube and xray. Mild drainage from chest tube area, he recommends redressing it, he will not be removing the chest tube today. Xray showed everything in place and small amount of fluid. Patient has been more anxious and paranoid this afternoon. Asks about medication that she is receiving. Feels she is not being told about the side effects. Patient does have new dx of dementia. Patient has not been given some daily PO meds which may be contributing. Family expresses concern about PT/OT. New bag of TPN hung, confirmed with JOHN Ashraf. Patient repositioned, heels floated. No other needs at this time.
[2019-03-08 19:30] VITALS: BP 172/83; PULSE 95; TEMP 97.8
--- NOTE | 2019-03-08 19:48 | NUR ---
Patient sleeping in bed, easy to arouse. Son Cedric at bedside. Patient received morphine for pain. Patient still uncomfortable, sometimes feels she is up "too high". Bed is in low position. Reeducated patient about surroundings. Reposition frequently. No other needs at this time. Report given to JOHN Boateng.
--- NOTE | 2019-03-08 22:23 | NUR ---
Pt in bed resting, very confused, has C/O pain, medications given, shift assessments complete, left Pt call light in reach, bed in lowest position, bed alarm on.
[2019-03-09] VITALS (8 sets, daily range): BP systolic 126–172; BP diastolic 70–86; PULSE 78–100; TEMP 97.1–98.7
--- NOTE | 2019-03-09 05:32 | NUR ---
Pt slept well during the night, has C/O back pain, VS have remained stable during the night.
[2019-03-09 09:43] LABS: CALCIUM 8.1 mg/dL (8.4-10.2); CREATININE, serum 0.44 (0.52-1.25); MAGNESIUM 2.2 mg/dL (1.6-2.3); PHOSPHOROUS 2.6 mg/dL (2.5-4.5); POTASSIUM 3.7 mmol/L (3.4-5.0)
--- NOTE | 2019-03-09 10:10 | NUR ---
Assessment completed, alert/ partially oriented, report pain to her right side/ chest tube site/ using pain meds as ordered, no resp.difficulty noted at rest, right lung bueno are very diminished, right chest tube to waterseal/ serosanguinous drainage noted, no crepitus noted around insertion site, some scant drainage on dressing/ otherwise dressing intact, patient has a stage II coccyx pressure ulcer/ mepilex applied and we have her on a turning schedule, has been in and we are awaiting recommendations from SurgeonMaureen present at this time and I have discussed plan of care with her
--- NOTE | 2019-03-09 10:55 | NUR ---
JUDY met with the patient and patient's daughter, Pedro, to review discharge plan and to discuss post-acute rehab. The patient's daughter reports that they are interested in post-acute rehab for the patient and would prefer [facility]. JUDY discussed options and presented and explained the patient choice form. The patient's daughter reports that she would like to further discuss post-acute rehab options and the patient choice form with her family. JUDY will need to follow up with the patient's daughter and continue to follow.
--- NOTE | 2019-03-09 12:03 | NUR ---
First visit from the fence builder. Small Engine Trainer prayed with patient and daughter. No other needs right now.
--- NOTE | 2019-03-09 15:00 | NUR ---
The pulmonoligist recommended having a family meeting to discuss the option of hospice. A palliative care consult is to be ordered. SW student updated palliative care nurse, Tamie. JUDY to continue to follow.
--- NOTE | 2019-03-09 15:46 | NUR ---
Brief meeting with daughter Pedro to discuss goals of care in preparation for tomorrow's meeting. No DPOA-HC can be located. Daughter will look at home and talk with siblings as believes that there is one.
--- NOTE | 2019-03-09 19:58 | NUR ---
Pt resting in bed sleeping, does not appear to be in pain at this time, shift assessments complete, left Pt call light in reach, bed in lowest position, bed alarm on.
[2019-03-10 04:06] VITALS: BP 159/68; PULSE 82; TEMP 98.2
--- NOTE | 2019-03-10 05:09 | NUR ---
Pt slept some during the night, easily awakened, Vs have remained stable, Pt has good output from her .
--- NOTE | 2019-03-10 05:13 | NUR ---
Pt slept most of the night, talkative when in the room, no C/O pain beyond her normal discomforts, VS have remained stable.
--- NOTE | 2019-03-10 05:21 | NUR ---
Pt slept most of the night, easily awakened, VS have remained stable.
[2019-03-10 06:07] LABS: HEMOGLOBIN 10.3 g/dl (12.5-16.0); MEAN CELL VOLUME 97 fl (80.0-100.0); MEAN CORPUSCULAR HEMOGLOBIN 31 pg (27.0-31.0); MEAN CORPUSCULAR HGB CONC 32 g/dl (33.0-37.0); MEAN PLATELET VOLUME 9.8 fl (7.4-10.4); PLATELET COUNT 446 K/mm3 (130-400); RED BLOOD COUNT 3.28 M/mm3 (4.10-5.30); REDCELL DISTRIBUTION WIDTH-CV 13.8 % (11.5-14.5)
[2019-03-10 06:13] LABS: HEMATOCRIT 31.9 % (37.0-47.0)
[2019-03-10 06:15] LABS: CALCIUM 8.4 mg/dL (8.4-10.2); CREATININE, serum 0.42 (0.52-1.25); MAGNESIUM 2.2 mg/dL (1.6-2.3); PHOSPHOROUS 2.9 mg/dL (2.5-4.5); POTASSIUM 3.8 mmol/L (3.4-5.0)
[2019-03-10 07:13] LABS: NEUTROPHILS 78 % (42.0-75.2)
[2019-03-10 07:14] LABS: BAND 5 % (0-10); EOSINOPHIL 2 % (0-4); LYMPHOCYTE 8 % (20.0-51.0); MYELOCYTE 2 % (0-0); PLATELET ESTIMATE INCREASED (NORMAL)
[2019-03-10 07:43] VITALS: BP 141/72; PULSE 96; TEMP 98.4
--- NOTE | 2019-03-10 09:25 | NUR ---
JUDY and JUDY student attended a family meeting with the patient's daughter (Pedro) and son (Cedric). The patient's other children: Charito, Echo, Nay, and Favio, were all on speaker phone. Also present was Dr. Goins and Palliative Care Nurse, Tamie. Dr. Goins began the meeting by updating the patient's family on the patient's prognosis. Tamie then discussed goals of care. The patient's family would like to continue supportive care at this time and continue with removing the chest tube, IV antibiotics, pain meds, and PT/OT. The patient's family would like to see how the patient does with that for the next couple of days. The patient's family informed us that the patient does have DPOA-HC and it is her son (Favio) and then daughter (Charito). JUDY provided the patient's son with medical's fax number to receive the DPOA-HC. JUDY to continue to follow.
--- NOTE | 2019-03-10 09:40 | NUR ---
Family meeting held at Dr Goins's request with Pedro and youngest son present and two daughters and son present by phone. Family did report that a DPOA-HC does exist and names oldest son and daughter, Chartio, as decision makers. Copy of this form was requested. Charito is also planning on being here tomorrow to see her mother. Dr Goins discussed pt's situation and prognosis in clear terms. Questions were encouraged and answered. Family was asked what is the goal of Katherine's care at this point--there was a pause and then Charito reported that they wanted her to be comfortable and they want her to continue with antibiotics and therapy in an attempt to get stronger. They are hopeful that when Charito arrives they can talk again, see how she is doing after her chest tube is removed. They would respect her decision to stop cares if she verbalizes that but want her to have more time to improve before she is asked.
--- NOTE | 2019-03-10 09:42 | NUR ---
Assessment completed, alert/partially oriented, vital signs stable, reports moderate to severe pain/ managed with IV morphine, right lung bueno are diminished/absent, chest tube to water seal/ minimal serosanguinous output, family present and having a palliative care meeting with physicans, planning to remove chest tube and continue with current plan of care at this time, patizeinab ceballoss stage II. pressure ulcer to coccyx and we are turning and changing position as patient and family allow
--- NOTE | 2019-03-10 11:37 | NUR ---
Antonieta used to help moisten mouth with explanation to family. Youngest son and daughter remain at bedside. Pt is now being started on DATASTAGE DEVELOPER for comfort after talking with family. Dr Ding will be in later to dc chest tube.
[2019-03-10 12:43] VITALS: BP 111/43; PULSE 76; TEMP 98.2
--- NOTE | 2019-03-10 14:30 | NUR ---
came by at 1430 and removed right sided chest tube at this time
--- NOTE | 2019-03-10 15:34 | NUR ---
Pt's daughter requested ice cream for her mother. Bridget wants chocolate ice cream when asked. Diet order recieved from Indira SAMUEL/Lalo Jensen MD. Pt requested and took 5-10 small bites with pauses between. Reviewed importance of sitting up and concentrating on swallowing. Pt tolerated this well with minimal throat clearing and would spit out small amt of phlegm between bites. Upon completion, she requested to lay back down but seemed pleased with her accomplishment. 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 She does report feeling more comfortable (with her EYEGLASS FRAMES INSPECTOR morphine).
--- NOTE | 2019-03-10 16:38 | NUR ---
SW received the patient's DPOA-HC via fax and placed in the patient's chart.
[2019-03-10 17:02] VITALS: BP 140/71; PULSE 91; TEMP 97.7
[2019-03-10 20:33] VITALS: BP 144/71; PULSE 102; TEMP 97.9
--- NOTE | 2019-03-10 21:34 | NUR ---
Pt in bed resting, shift assessments complete, left Pt call light in reach, bed in lowest position, bed alarm on.
[2019-03-10 23:56] VITALS: BP 138/67; PULSE 94; TEMP 97.6
[2019-03-11 02:52] VITALS: BP 143/64; PULSE 94; TEMP 97.5
--- NOTE | 2019-03-11 05:10 | NUR ---
Pt slept on and off during the night, easily awakened from sleep, Pt appears to have her pain controlled without undue sedation, Vs have remained stable during the night, is draining well, chest tube site bandage is CDI.
[2019-03-11 06:36] LABS: CALCIUM 8.2 mg/dL (8.4-10.2); CREATININE, serum 0.44 (0.52-1.25); MAGNESIUM 2.1 mg/dL (1.6-2.3); PHOSPHOROUS 3.4 mg/dL (2.5-4.5); POTASSIUM 4.3 mmol/L (3.4-5.0)
--- NOTE | 2019-03-11 07:15 | NUR ---
Report received from JOHN Boateng. Pt in bed resting, gave oral swab and provided mouth care, pt coughed from this and had trouble clearing even this amoutno f fluid. Will continue to montior.
[2019-03-11 07:51] VITALS: BP 140/66; PULSE 92; TEMP 97.9
[2019-03-11 08:18] LABS: MEAN CELL VOLUME 98 fl (80.0-100.0); MEAN CORPUSCULAR HGB CONC 32 g/dl (33.0-37.0); MEAN PLATELET VOLUME 10.3 fl (7.4-10.4); PLATELET COUNT 449 K/mm3 (130-400); RED BLOOD COUNT 3.07 M/mm3 (4.10-5.30); REDCELL DISTRIBUTION WIDTH-CV 13.9 % (11.5-14.5)
[2019-03-11 08:19] LABS: HEMATOCRIT 30.1 % (37.0-47.0); HEMOGLOBIN 9.5 g/dl (12.5-16.0); MEAN CORPUSCULAR HEMOGLOBIN 31 pg (27.0-31.0)
[2019-03-11 08:31] LABS: EOSINOPHIL 2 % (0-4); LYMPHOCYTE 9 % (20.0-51.0); NEUTROPHILS 87 % (42.0-75.2); PLATELET ESTIMATE NORMAL (NORMAL)
--- NOTE | 2019-03-11 09:27 | NUR ---
Talked with Bridget this morning about how she was feeling. Reports her pain is still there and pushed ROBOTICS ENGINEER button to help with discomfort. She was asked what she was willing to do today and states is "too tired" for PT--just needs to rest for a couple of days--and then wants to keep trying to get stronger and better. She repeated this to Dr Goins during his visit as well. Daughter, Pedro, is here and was given lab results specifically WBC's. Current plan of care continues to be treatment with goal for rehab and improvement at this time. More family is anticipated to visit today.
--- NOTE | 2019-03-11 10:50 | NUR ---
Assessment charted. Total bed change, bed bath, massage, shampoo, repositioned, placed tape around nasal canula on cheeks where skin appears to be breakign down. L elbow mepilex placed for skin tear, changed sacral mepilex for stage 2 on coccyx, L heel is pink, elevated on pillows. Turning q2 hours. Family at bedside. Pt denies any hunger. TPN to PICC and PAYROLL REPRESENTATIVE at 0.5 mg/hr of MS. Pt not oriented, responds to some questions. Will contineu to monitor.
[2019-03-11 12:01] VITALS: BP 130/57; PULSE 87; TEMP 97.7
--- NOTE | 2019-03-11 12:07 | NUR ---
While visiting with Dr Jensen, pt was able to particpate in discussion of what her wishes would be. She is reporting that she is very tired and it is hard to do anything. She is getting tired of fighting and does understand that her prognosis is poor. She was given the option of going to an LTAC to continue her antibiotics and TPN and therapies to keep fighting this or to stop these things and focus more on comfort and time with family. Bridget stopped and thought and after a pause said she was ready to stop the antibiotics, feedings, and the more aggressive cares and just be comfortable as nature allows her . Pt states she thinks she is too tired to continue. Daughter Charito was called and plans to be here at 3pm today. Dr Jensen would like to talk with family if they can be available and Charito will facilitate this communication. Charito reports that she is supportive of her mother's decision but would be glad to talk to physician.
--- NOTE | 2019-03-11 13:15 | NUR ---
The hospitalist, Dr. Jensen, requested another family meeting. SW contacted the patient's son (Cedric) and daughter (Pedro) to inform. Palliative Care Nurse, Tamie, contacted the patient's daughter (Charito). Charito plans to be at the hospital around 1500 and will contact her other siblings. SW to continue to follow.
--- NOTE | 2019-03-11 13:58 | NUR ---
Pt's daughter Charito has called several times to advise that not sure that many other family members will be here today but some may listen by phone. We will plan on meeting at 3pm in family room with Dr Jensen and work to finalize plans for Bridget's care.
--- NOTE | 2019-03-11 15:38 | NUR ---
Dr Jensen met with daughters Charito and Pedro with Echo on speaker phone to discuss pt's case and her request for comfort care. Family is tearful but recognizes that she has been fighting a very long and hard cohen and that her request for comfort care is respected by all family members. Pt is an approved body donor to [facility] and the family has the letter verifying this on their phone. Dr Jensen will initiate comfort care orders, increased interval dosing of BODY SERVICE TEAM MEMBER, and will stop antibiotics, TPN, IV fluids and all therapy. Son jennifer has also just arrived. We are working to send referral to [facility] at family's request and are requesting a tour for the family. Charito is DPOA-HC and will try to sign paperwork today or else Skip will be here tomorrow and can do paperwork then. Pt appears to be resting comfortably with family around her bed. Comfort quilt provided with explanation. Comfort care basket also ordered to be delivered.
--- NOTE | 2019-03-11 15:45 | NUR ---
JUDY and JUDY student attended the family meeting with the patient's daughter's Kayli. The patient's other daughter was on speaker phone. Also present was Dr. Jensen and palliative care nurse, Tamie. Dr. Jensen disussed the patient's condition and what the patient expressed in rounds this morning. The patient's daughters were supportive of the patient's wishes of focusing on comfort and have decided to pursue [facility]. JUDY contacted and faxed a referral to [facility]. JUDY also informed Isreal that the patient's family would also like to come and tour the facility this afternoon. [facility] reports that they would be able to give a tour. JUDY informed the patient's family. JUDY to continue to follow.
--- NOTE | 2019-03-11 16:51 | NUR ---
Dudley, at [facility], reports that they can accept the patient at [facility] and that the patient's PCP, Dr. Robin Valenzuela, will follow her care there. Dudley requests that we have transportation set up by 1000 tomorrow morning. JUDY updated the patient's PAWaleska. JUDY to continue to follow.
--- NOTE | 2019-03-11 18:20 | NUR ---
Pt has had family here since 3 pm family meeting with , social welfare administrator, Tamie Grijalva. since then family has been visiting. Turned pt for comfort as needed and approximately every 2 hours throughout day. Increased TRAVERTINE INSTALLER for pt comofrt as she is not pushing the button herself well, increased basal rate per family request and Deb, MATERIAL HANDLING WAREHOUSE SUPERVISOR for hospitalist group. Family at bedside, denies needs, will give bedside shift report to nightshift nruse who will resume care.
--- NOTE | 2019-03-11 21:19 | NUR ---
Patient resting in bed. Assessment completed- diminished lung sounds, abdominal sounds active, pulses +2 pedal, +3 radial, indwelling catheter in place, TPN infusing at 60 mls/hr- this is the last bag and then will be stopped. Per Dr. Jensen, stop end tidal co2 monitoring- as patient is now comfort care, pt also can come off of telemetry. Pt denies pain at this time.
--- NOTE | 2019-03-12 05:00 | NUR ---
Pt slept most of the shift- pain has been controlled with TANK CALIBRATOR pump- morphine running at 1 mg/hr. Foreman still in place. Pt has not reported any pain. Asleep in bed at this time.
--- NOTE | 2019-03-12 06:41 | NUR ---
REPORT GIVEN TO JOHN WAY.
[2019-03-12] MEDS ORDERED: TRANSDERM-0.5 MG/21 TD (07:12)
[2019-03-12] MEDS ORDERED: SENOKOT S 50 MG1 TAB PO (07:14)
[2019-03-12] MEDS ORDERED: COLACE 100100 MG/CAP PO (07:14)
[2019-03-12] MEDS ORDERED: ARTIFICIAL TEAR15 M7 OP (07:15)
--- NOTE | 2019-03-12 07:15 | NUR ---
Received report, patient is resting in bed with eyes closed. Heel protectors are in place. No signs of pain. Light touch call light is within reach.
[2019-03-12] MEDS ORDERED: ATIVAN 1MG T1 MG/TAB PO (07:25)
[2019-03-12] MEDS ORDERED: MORPHINEPCA IV ×2 (08:36→09:01)
--- NOTE | 2019-03-12 09:17 | NUR ---
Pt was restless this am although unsure what she wants or needs. Asks for help but then not sure what she is wanting. She was able to get some relief from her anxiety with her CHAIN SAW MECHANIC and with ativan dose and appears to be sleeping at this time. I have spoken to Adan at [facility] about the CHAIN SAW MECHANIC pump and orders have been sent to [facility] and will be sent to [facility] where the pump is being rented from. Plan for transport to [facility] at 10-10:30. PT was seen by Dr Deleon earlier this morning. Oral hygiene provided. Her edema is notably worse and her hands actually feel cold. She is still not wanting to be covered with blankets and so bedside support was provided.
--- NOTE | 2019-03-12 09:20 | NUR ---
PICC intact right upper arm with sterile dressing change done with insertion site cleansed with chloraprep x 1, skin prep, stat lock, chlorhexidine impregnated disk applied, and tegaderm applied. no signs or symptoms of IV complications noted. re-wrapped with licha to protect catheter. [facility] today.
--- NOTE | 2019-03-12 10:02 | NUR ---
The patient is to discharge today, 03/12, to [facility]. Transportation was set for 1030, via [facility]. JUDY informed the patient's daughter (Charito) via phone, the patient's children (Cedric and Pedro), Adan at [facility], and the patient's nurse. They were all in agreeance. [facility] requested that the patient's scripts be faxed to [facility]. JUDY faxed the scripts to [facility]. JUDY also presented and explained the IM form to the patient's daughter. The patient's daughter verbalized understanding, signed, and she was provided a copy. No additional needs at this time.
--- NOTE | 2019-03-12 10:53 | NUR ---
EMS here to transport opt to [facility]. ELECTRICAL TECH and IV fluids were discontinued and both PICC lines flushed. Pt transfered to cot with rajendra in place, 02 on at 2l/nc, family will follow ambulance to [facility] as usual route in closed. Report called to Emely at [facility] and paperwork was sent [facility] pt. Pt did not awaken during transfer and no additional medications were administered prior to discharge.
== END 2019-03-12 10:45 | disposition hospice, inpatient (51) | DRG 871 ==
LOC: COL.ER 09:47 → ICU 11:34 → MEDICAL 03-07 18:00
PROVIDERS: Family Medicine; Internal Medicine Pulmonary Disease; Physician Assistant; ADMIT Hospitalist
PROC: 0W993ZX Drainage of Right Pleural Cavity, Percutaneous Approach, Diagnostic (ICD-10-PCS; principal; 2019-03-05)
PROC: 0W9930Z Drainage of Right Pleural Cavity with Drainage Device, Percutaneous Approach (ICD-10-PCS; 2019-03-06)
DX: A41.9 Sepsis, unspecified organism (principal); J96.01 Acute respiratory failure with hypoxia; J86.9 Pyothorax without fistula; J18.9 Pneumonia, unspecified organism; N17.9 Acute kidney failure, unspecified; Z66 Do not resuscitate; Z51.5 Encounter for palliative care; J90 Pleural effusion, not elsewhere classified; E44.0 Moderate protein-calorie malnutrition; Z68.1 Body mass index [BMI] 19.9 or less, adult; I10 Essential (primary) hypertension; I25.10 Atherosclerotic heart disease of native coronary artery without angina pectoris; E78.5 Hyperlipidemia, unspecified; Z95.2 Presence of prosthetic heart valve; G20 Parkinson's disease; F02.80 Dementia in other diseases classified elsewhere, unspecified severity, without behavioral disturbance, psychotic disturbance, mood disturbance, and anxiety; F32.9 Major depressive disorder, single episode, unspecified; R65.20 Severe sepsis without septic shock; B95.4 Other streptococcus as the cause of diseases classified elsewhere; D64.9 Anemia, unspecified; M54.5 Low back pain; G89.29 Other chronic pain
CPT/HCPCS: 99223-AI; 99233-AI; 99239; A4216; A4217; A7041; C1751; J0456; J0610; J0696; J1650; J1940; J2060; J2185; J2270; J2704; J3010; J3370; J3475; J3480; J7030; J7050; J7070; J7131